=== PATIENT | female | born 1950 | race Caucasian/White ===

== ENCOUNTER 2023-03-17 11:58 | Emergency (ER) | payer MEDICARE ==
[2023-03-17 12:13] VITALS: PULSE 74; TEMP 99.5
[2023-03-17] MEDS ORDERED: Sodium Chloride 0.9% 500 ML 500 ML IV ONE ×2 (12:27→12:29)
--- NOTE | 2023-03-17 12:33 | ERPHSYRPT ---
- History of Present Illness Time Seen by Provider: 03/17/23 12:04 Source: patient, EMS Exam Limitations: no limitations Patient Subjective Stated Complaint: Pt c/o of dizziness and fatigue since before September Triage Nursing Assessment: Pt brought to the ER, vitals wnl, denies pain, pt states that she has been fatigued and dizzy since before her in September, pt states that she has a blood clot in her left arm and a clot in her left carotid, pulses normal, skin n/w/d, no difficulty breathing, doesn't appear to be in any distress Physician History: 72 years old female with history of hypertension, hyperlipidemia, tobacco abuse, COPD, peripheral vascular disease presented in the ER with chief complaint of fe eling dizzy and lightheaded for the last 4 to 5 months off-and-on. Patient reports she feels sleepy all the time and has no energy to do her routine activities. Denies any chest pain palpitations or shortness of breath. Patient has been thoroughly worked up outpatient and has seen cardiology with peripheral vascular disease in the carotids and left upper extremity. Denies fever or chills. Patient denies any worsening today but was at Thanksgiving dinner and was feeling weak fatigued and did not want to sit there and family insisted on being evaluated. Patient reports she is not dizzy or lightheaded now. Patient symptoms are aggravated with activity and better with resting. Also reports chronic weakness in left upper extremity as compared to right which is not any worse than usual. Allergies/Adverse Reactions: albuterol Allergy (Verified 03/17/23 12:14) varenicline [From Chantix] Allergy (Verified 03/17/23 12:14) Home Medications: Clopidogrel Bisulfate [Clopidogrel] 75 mg PO DAILY 03/17/23 [History] Duloxetine HCl 60 mg PO DAILY 03/17/23 [History] Folic Acid 1 mg [Folate 1 mg] 1 mg PO DAILY 03/17/23 [History] Gabapentin [Neurontin ] 100 mg PO DAILY 03/17/23 [History] Levocetirizine Dihydrochloride 5 mg PO DAILY 03/17/23 [History] Montelukast Sodium 10 mg [Singulair 10 MG] 10 mg PO DAILY 03/17/23 [History] Omeprazole 20 mg PO DAILY 03/17/23 [History] Rosuvastatin Calcium 5 mg PO DAILY 03/17/23 [History] Verapamil HCl Sr [Isoptin Sr] 180 mg PO DAILY 03/17/23 [History] Hx Influenza Vaccination/Date Given: Yes Hx Pneumococcal Vaccination/Date Given: Yes Travel Risk - International Travel Have you traveled outside of the country in past 3 weeks: No - Coronavirus Screening Are you exhibiting any of the following symptoms?: No Close contact with a COVID-19 positive Pt in past 14-21 Days: No - Vaccine Status Have you recieved a Covid-19 vaccination: Yes Dinkey Dispatcher: Unknown - Vaccination Dates Dates if Unknown: unk - Review of Systems Constitutional: Fatigue, Weakness Eyes: No Symptoms Ears, Nose, & Throat: No Symptoms Respiratory: No Symptoms Cardiac: No Symptoms Abdominal/Gastrointestinal: No Symptoms Genitourinary Symptoms: No Symptoms Musculoskeletal: Arthralgias Skin: No Symptoms Neurological: Dizziness Psychological: No Symptoms Endocrine: No Symptoms Hematologic/Lymphatic: No Symptoms Immunological/Allergic: No Symptoms - Past Medical History Pertinent Past Medical History: Yes Neurological History: TIA Cardiac History: Hypertension Respiratory History: No Pertinent History Endocrine Medical History: No Pertinent History Musculoskeletal History: Degenerative Disk Disease, Fibromyalgia, Osteoarthritis, Osteoporosis Other Medical History: "several" caths, hiatial hernia - Past Surgical History Past Surgical History: Yes Gastrointestinal: Appendectomy, Cholecystectomy Musculoskeletal: Joint Replacement, Orthopedic Surgery Female Surgical History: Hysterectomy Other Surgical History: ribs removed, tube removed due to tubal - Social History Smoking Status: Current every day smoker Exposure to second hand smoke: Yes Drug Use: none Patient Lives Alone: No - Nursing Vital Signs Nursing Vital Signs: Initial Vital Signs Temperature 99.5 F 03/17/23 12:04 Pulse Rate 74 03/17/23 12:04 Blood Pressure 126/79 03/17/23 12:04 O2 Sat by Pulse Oximetry 100 03/17/23 12:04 Pain Scale Pain Intensity 0 - Physical Exam General Appearance: no apparent distress, alert, anxiety Eye Exam: PERRL/EOMI, eyes nml inspection Ears, Nose, Throat Exam: normal ENT inspection, TMs normal, pharynx normal, moist mucous membranes Neck Exam: normal inspection, non-tender, supple, full range of motion Respiratory Exam: normal breath sounds, lungs clear Cardiovascular Exam: regular rate/rhythm, normal heart sounds Gastrointestinal/Abdomen Exam: soft, normal bowel sounds, No tenderness Extremity Exam: normal inspection, normal range of motion Neurologic Exam: alert, oriented x 3, cooperative, auto striper II-XII nml as tested, nml cerebellar function, sensation nml, No normal mood/affect, No motor deficits, No sensory deficit Skin Exam: normal color SpO2 Interpretation: normal SpO2: 100 O2 Delivery: Room Air - Course EKG Interpreted by Me: RATE (73), Sinus Rhythm, NORMAL AXIS, NORMAL INTERVALS, Other (Mild ST depression in inferolateral leads.) Ordered Tests: Active Orders 24 hr Category Date Time Status EKG-ER Only STAT Care 03/17/23 12:26 Active IV Insertion STAT Care 03/17/23 12:26 Active NPO (ED) STAT Care 03/17/23 12:26 Active Orthostatic Vital Signs STAT Care 03/17/23 12:27 Active cath [Cath for Specimen-Straight] STAT Care 03/17/23 12:28 Active CHEST 1 VIEW (PORTABLE) Stat Exams 03/17/23 12:26 Taken HEAD WITHOUT CONTRAST [CT] Stat Exams 03/17/23 12:26 Completed CBC W DIFF Stat Lab 03/17/23 12:30 Completed CMP Stat Lab 03/17/23 12:30 Completed CULTURE,URINE Stat Lab 03/17/23 12:28 Received Lactic Acid Stat Lab 03/17/23 12:26 Completed MAGNESIUM Stat Lab 03/17/23 12:30 Completed PROCALCITONIN Stat Lab 03/17/23 12:30 Completed TROPONIN Q4H Lab 03/17/23 12:30 Completed TROPONIN Q4H Lab 03/17/23 16:30 Ordered TROPONIN Q4H Lab 03/17/23 20:30 Ordered TSH, 3RD Generation Stat Lab 03/17/23 12:30 Completed UA W/RFX UR CULTURE Stat Lab 03/17/23 12:27 Completed Medication Summary Discontinued Medications Generic Name Dose Route Start Last Admin Trade Name Freq PRN Reason Stop Dose Admin Sodium Chloride 500 mls @ 500 mls/hr 03/17/23 12:27 03/17/23 13:32 Sodium Chloride 0.9% 500 Ml IV 03/17/23 13:26 Infused .Q1H ONE Infusion Sodium Chloride Confirm 03/17/23 12:29 Sodium Chloride 0.9% 500 Ml Administered 03/17/23 12:30 Dose 500 mls @ ud IV [facility] 03/17/23 14:08 03/17/23 14:12 Meclizine Hcl 25 Mg Tablet PO 03/17/23 14:09 25 mg STAT ONE Administration Meclizine HCl Confirm 03/17/23 14:09 Meclizine Hcl 25 Mg Tablet Administered 03/17/23 14:10 Dose 25 mg .ROUTE .STK-MED ONE Meclizine HCl 25 mg 03/17/23 14:50 03/17/23 14:52 Meclizine Hcl 25 Mg Tablet PO 03/17/23 14:51 25 mg STAT ONE Administration Meclizine HCl Confirm 03/17/23 14:51 Meclizine Hcl 25 Mg Tablet Administered 03/17/23 14:52 Dose 25 mg .ROUTE .[facility] ONE Lab/Rad Data: Laboratory Result Diagrams 03/17/23 12:30 03/17/23 12:30 Laboratory Results 03/17/23 03/17/23 03/17/23 Range/Units 12:30 12:30 12:30 WBC 11.0 H (4.0-10.5) x10^3/uL RBC 4.18 (4.1-5.4) x10^6/uL Hgb 12.5 (12.0-16.0) g/dL Hct 39.0 (35-47) % MCV 93.3 (78-100) fL MCH 29.9 (26-32) pg MCHC 32.1 (32-36) g/dL RDW 13.1 (11.5-14.0) % Plt Count 256 (150-450) x10^3/uL MPV 10.7 (7.5-11.0) fL Gran % 69.6 H (36.0-66.0) % Immature Gran % (Auto) 0.4 (0.00-0.4) % Nucleat RBC Rel Count 0.0 (0.00-0.1) % Eos # (Auto) 0.18 (0-0.5) x10^3/uL Immature Gran # (Auto) 0.04 H (0.00-0.03) x10^3u/L Absolute Lymphs (auto) 2.11 (1.0-4.6) x10^3/uL Absolute Monos (auto) 0.98 (0.0-1.3) x10^3/uL Absolute Nucleated RBC 0.00 (0.00-0.01) x10^3u/L Lymphocytes % 19.2 L (24.0-44.0) % Monocytes % 8.9 (0.0-12.0) % Eosinophils % 1.6 (0.00-5.0) % Basophils % 0.3 (0.0-0.4) % Absolute Granulocytes 7.66 H (1.4-6.9) x10^3/uL Basophils # 0.03 (0-0.4) x10^3/uL Sodium 138 (137-145) mmol/L Potassium 3.8 (3.5-5.1) mmol/L Chloride 103 (98-107) mmol/L Carbon Dioxide 27 (22-30) mmol/L Anion Gap 11.9 (5-15) MEQ/L BUN 10 (7-17) mg/dL Creatinine 0.77 (0.52-1.04) mg/dL Estimated GFR 81.9 ML/MIN Glucose 100 (74-106) mg/dL Lactic Acid (0.4-2.0) Calcium 10.0 (8.4-10.2) mg/dL Magnesium 1.8 (1.6-2.3) mg/dL Total Bilirubin 0.60 (0.2-1.3) mg/dL AST 24 (14-36) U/L ALT 14 (0-35) U/L Alkaline Phosphatase 77 (38-126) U/L Troponin I < 0.012 (0.000-0.034) ng/mL Serum Total Protein 7.4 (6.3-8.2) g/dL Albumin 3.7 (3.5-5.0) g/dL Procalcitonin 0.052 (0.030-0.080) ng/mL TSH 3rd Generation 1.560 (0.47-4.68) mIU/L Urine Color (Yellow) Urine Appearance (Clear) Urine pH (4.6-8.0) Ur Specific Dorothy (1.005-1.030) Urine Protein (Negative) Urine Glucose (UA) (Negative) mg/dL Urine Ketones (Negative) Urine Blood (Negative) Urine Nitrite (Negative) Urine Bilirubin (Negative) Urine Urobilinogen (0.2) mg/dL Ur Leukocyte Esterase (Negative) U Hyaline Cast (Auto) (0-2) /LPF Urine Microscopic RBC (0-5) /HPF Urine Microscopic WBC (0-5) /HPF Ur Epithelial Cells (None Seen) /HPF Urine Bacteria (None Seen) /HPF Urine Culture Reflexed (NO) 03/17/23 03/17/23 Range/Units 12:27 12:26 WBC (4.0-10.5) x10^3/uL RBC (4.1-5.4) x10^6/uL Hgb (12.0-16.0) g/dL Hct (35-47) % MCV (78-100) fL MCH (26-32) pg MCHC (32-36) g/dL RDW (11.5-14.0) % Plt Count (150-450) x10^3/uL MPV (7.5-11.0) fL Gran % (36.0-66.0) % Immature Gran % (Auto) (0.00-0.4) % Nucleat RBC Rel Count (0.00-0.1) % Eos # (Auto) (0-0.5) x10^3/uL Immature Gran # (Auto) (0.00-0.03) x10^3u/L Absolute Lymphs (auto) (1.0-4.6) x10^3/uL Absolute Monos (auto) (0.0-1.3) x10^3/uL Absolute Nucleated RBC (0.00-0.01) x10^3u/L Lymphocytes % (24.0-44.0) % Monocytes % (0.0-12.0) % Eosinophils % (0.00-5.0) % Basophils % (0.0-0.4) % Absolute Granulocytes (1.4-6.9) x10^3/uL Basophils # (0-0.4) x10^3/uL Sodium (137-145) mmol/L Potassium (3.5-5.1) mmol/L Chloride (98-107) mmol/L Carbon Dioxide (22-30) mmol/L Anion Gap (5-15) MEQ/L BUN (7-17) mg/dL Creatinine (0.52-1.04) mg/dL Estimated GFR ML/MIN Glucose (74-106) mg/dL Lactic Acid 1.8 (0.4-2.0) Calcium (8.4-10.2) mg/dL Magnesium (1.6-2.3) mg/dL Total Bilirubin (0.2-1.3) mg/dL AST (14-36) U/L ALT (0-35) U/L Alkaline Phosphatase (38-126) U/L Troponin I (0.000-0.034) ng/mL Serum Total Protein (6.3-8.2) g/dL Albumin (3.5-5.0) g/dL Procalcitonin (0.030-0.080) ng/mL TSH 3rd Generation (0.47-4.68) mIU/L Urine Color Dark Yellow A (Yellow) Urine Appearance Clear (Clear) Urine pH 7.0 (4.6-8.0) Ur Specific Dorothy 1.020 (1.005-1.030) Urine Protein Trace A (Negative) Urine Glucose (UA) Negative (Negative) mg/dL Urine Ketones Trace A (Negative) Urine Blood Negative (Negative) Urine Nitrite Negative (Negative) Urine Bilirubin Negative (Negative) Urine Urobilinogen 1.0 A (0.2) mg/dL Ur Leukocyte Esterase Trace A (Negative) U Hyaline Cast (Auto) 11-20 (0-2) /LPF Urine Microscopic RBC 0-2 (0-5) /HPF Urine Microscopic WBC 3-5 (0-5) /HPF Ur Epithelial Cells None Seen (None Seen) /HPF Urine Bacteria None Seen (None Seen) /HPF Urine Culture Reflexed ORDERED SEPARATELY (NO) - Progress Progress: improved Progress Note: 03/17/23 14:49 72 years old female with history of hypertension, hyperlipidemia, tobacco abuse, COPD, peripheral vascular disease presented in the ER with chief complaint of feeling dizzy and lightheaded for the last 4 to 5 months off-and-on. Patient reports she feels sleepy all the time and has no energy to do her routine activities. Denies any chest pain palpitations or shortness of breath. Patient has been thoroughly worked up outpatient and has seen cardiology with peripheral vascular disease in the carotids and left upper extremity. Denies fever or chills. Patient denies any worsening today but was at Thanksgiving dinner and was feeling weak fatigued and did not want to sit there and family insisted on being evaluated. Patient reports she is not dizzy or lightheaded now. Patient symptoms are aggravated with activity and better with resting. Also reports chronic weakness in left upper extremity as compared to right which is not any worse than usual. Patient has nonfocal neuroexam throughout stay in the ER. CT head is negative EKG showed sinus rhythm with no acute ST elevations. Negative troponins. Normal white count, fairly unremarkable chemistries. No UTI. She is given meclizine in here along with fluids, on reevaluation her dizziness is improved. She is able to ambulate in the ER without having any symptoms of dizziness or lightheadedness. I would continue with meclizine to go home. Part of her symptoms are secondary to depression as well. I do not think patient needs to be admitted or any other workup and is stable for discharge with outpatient follow-up. Discussed signs symptoms of worsening needing return to ER which she seems understanding. I have shared the results of workup with patient and plan of discharge and outpatient follow-up which she understands and agrees. Counseled pt/family regarding: lab results, diagnosis, need for follow-up, rad results, smoking cessation Medical Desision Making - Independent Historian Additional History obtained from: EMS - Risk of complications The pt has a mod risk of morbidity or mortality based on: Need for prescription drug management - Departure Departure Disposition: Home Clinical Impression: Generalized weakness, Dizziness, nonspecific Condition: Stable Critical Care Time: No Referrals: MARGARITO VILLANUEVA NP [Primary Care Provider] - Follow up with PCP 1 day Instructions: Dizziness, Nonvertigo, (DC) Additional Instructions: Drink plenty of fluids to keep yourself well-hydrated. Follow-up with primary care for reevaluation. Return to ER for worsening. Take meclizine as needed only. Prescriptions: Meclizine HCl 25 mg [Antivert 25 mg] 12.5 mg PO Q8HPRN PRN 20 Days #10 tablet PRN Reason: Dizziness
[2023-03-17 12:44] LABS: Absolute Neutrophil Ct (ANC) 7.66 x10^3/uL (1.4-6.9); BASOPHIL % 0.3 % (0.0-0.4); Basophil (Absolute #) 0.03 x10^3/uL (0-0.4); Eosinophil % 1.6 % (0.00-5.0); Eosinophil (Absolute #) 0.18 x10^3/uL (0-0.5); Hemoglobin 12.5 g/dL (12.0-16.0); IMMATURE GRAN # 0.04 x10^3u/L (0.00-0.03); IMMATURE GRAN % 0.4 % (0.00-0.4); Lymphocyte (Absolute #) 2.11 x10^3/uL (1.0-4.6); Lymphocytes % 19.2 % (24.0-44.0); Mean Cell Volume 93.3 fL (78-100); Mean Corpuscular Hemoglobin 29.9 pg (26-32); Mean Corpuscular Hgb Concent. 32.1 g/dL (32-36); Mean Platelet Volume 10.7 fL (7.5-11.0); Monocyte (Absolute #) 0.98 x10^3/uL (0.0-1.3); Monocytes % 8.9 % (0.0-12.0); Neutrophil % 69.6 % (36.0-66.0); Platelet Count 256 x10^3/uL (150-450); Red Blood Count 4.18 x10^6/uL (4.1-5.4); Red Cell Distribution Width 13.1 % (11.5-14.0)
[2023-03-17 12:59] LABS: Appearance Clear (Clear); Bacteria None Seen /HPF (None Seen); Bilirubin Negative (Negative); Blood Negative (Negative); Epithelial Cells None Seen /HPF (None Seen); Glucose, Urine Negative (Negative); Ketones Trace (Negative); Leukocyte Esterase Trace (Negative); Nitrite Negative (Negative); Protein,Urine Dip Trace (Negative); RBC 0-2 /HPF (0-5)
[2023-03-17 13:00] LABS: ADD URINE CULTURE? ORDERED SEPARATELY (NO)
--- NOTE | 2023-03-17 13:27 | XRAY ---
CLINICAL HISTORY:DIZZINESS COMPARISON:None. TECHNIQUES:Axial non-contrast CT scan of the brain was performed from the skull base to the high parietal region. FINDINGS: No intracerebral or extra axial hematoma. No established territorial infarction. There are few tiny ill-defined hypodense areas noted in the subcortical white matter bilaterally more on the left side, suggestive of microvascular ischemic changes. The ventricular system, cortical sulci and basal cisterns are prominent and consistent with senile changes. The rest visualized brain parenchyma shows a normal appearance. Dutta-white matter differentiation is maintained. No midline shifts or deformity. Normal size and configuration of the cerebral ventricles. Normal CT appearance of the posterior fossa structures namely the cerebellar hemispheres, brainstem, and cerebellar peduncles. The IACs are unremarkable. The cerebello-pontine angles are clear. The pituitary gland, the pineal gland, the optic chiasm is unremarkable. The osseous structures in the skull base are unremarkable. No definite calvarium fractures. The scanned paranasal sinuses are clear. Internal bony hyperostosis was noted in the bilateral high parietal bone. Slight deviated nasal septum with a bony spur toward the left side. IMPRESSION: No evidence of intracranial hemorrhage, established territorial infarction, or mass-effect. For hyperacute infarction, MRI is the modality of choice with DWI and ADC sequences. Mild microvascular ischemic changes were noted in the brain along with age-appropriate global brain involutional changes. [facility] ER was called at [phone] at 12:13 PM SOC ANALYST, 03/17/2023 and results were verbally communicated to Dr. Manrique Electronically Signed by: Claude Arnold MD. (03/17/2023 12:18:17 SOC ANALYST)
[2023-03-17 13:59] LABS: ALBUMIN 3.7 g/dL (3.5-5.0); ANION GAP 11.9 MEQ/L (5-15); BILIRUBIN,TOTAL 0.6 mg/dL (0.2-1.3); Creatinine 1 0.77 mg/dL (0.52-1.04); EST GLOMERULAR FILTRATION RATE 81.9 ML/MIN; MAGNESIUM 1.8 mg/dL (1.6-2.3); PROCALCITONIN 0.052 ng/mL (0.030-0.080); Potassium 3.8 mmol/L (3.5-5.1); TSH, 3RD Generation 1.56 mIU/L (0.47-4.68); Total Protein 7.4 g/dL (6.3-8.2)
[2023-03-17] MEDS ORDERED: ANTIVERT 25 MG PO ONE ×2 (14:08→14:50)
[2023-03-17] MEDS ORDERED: ANTIVERT 25 MG ONE ×2 (14:09→14:51)
[2023-03-17 14:29] VITALS: BP 132/78
[2023-03-17 14:52] VITALS: O2SAT 100
--- NOTE | 2023-03-17 20:28 | XRAY ---
Indication: Dizziness. Comparison: May 29, 2020 Portable chest again hyperinflated and clear. Heart not enlarged. Bony thorax intact again with mild degenerative changes. Impression: Continued nonacute hyperinflated chest.
== END 2023-03-17 15:05 | disposition home or self-care (01) ==
LOC: ED 11:58
DX: R53.1 Weakness (principal); R42 Dizziness and giddiness; I10 Essential (primary) hypertension; E78.5 Hyperlipidemia, unspecified; Z79.02 Long term (current) use of antithrombotics/antiplatelets; Z79.899 Other long term (current) drug therapy; Z72.0 Tobacco use
CPT/HCPCS: 36000; 36415; 70450; 71045; 80053; 81001; 83605; 83735; 84145; 84443; 84484; 85025; 87086; 93005; 96360; 96361; 99284; P9612; A9270-GY